=== PATIENT | female | born 1950 | race Caucasian/White ===

== ENCOUNTER 2017-04-10 13:20 | Emergency (ER) | payer OTHER ==
[~2017-04-10] VITALS: Ht 165.1 cm; Wt 81.7 kg
[2017-04-10 13:20] VITALS: BP 180/115
[~2017-04-10 13:20] MED LIST: NOHOMEMEDICATIONS; NORCO 5-325 TA1 EACH PO
[2017-04-10] MEDS ORDERED: NORCO 5-325 TA1 EACH PO (13:40)
== END 2017-04-10 14:21 | disposition home or self-care (01) ==
LOC: ER 13:20
DX: M25.562 Pain in left knee (principal); F17.210 Nicotine dependence, cigarettes, uncomplicated; Z88.0 Allergy status to penicillin

== ENCOUNTER 2021-04-04 09:33 | Inpatient (IN) | payer MEDICARE ==
[~2021-04-04] VITALS: Ht 165.1 cm; Wt 98.2 kg
[2021-04-04 09:45] VITALS: BP 109/88
[2021-04-04 10:15] LABS: ABSOLUTE NEUTROPHILS 14.9 thou/uL (1.4-8.2); BASOPHILS 0.5 % (0.0-2.0); EOSINOPHILS 0.3 % (0.0-3.0); HEMATOCRIT 42.8 % (37.0-47.0); HEMOGLOBIN 13.5 gm/dL (12.0-15.0); LYMPHOCYTES 7.1 % (24.0-44.0); MCH 27.1 pg (26.0-34.0); MCHC 31.6 g/dL (28.0-37.0); MCV 85.8 fL (80.0-100.0); MONOCYTES 7.9 % (1.0-8.0); PLATELET COUNT 390 thou/uL (150-400); POLYS 84.2 % (36.0-66.0); RBC 4.99 mil/uL (4.20-5.00); RDW 15.1 % (10.5-14.5); WBC 17.7 thou/uL (4.0-11.0)
[2021-04-04 10:19] LABS: ANION GAP 12 mmol/L (7-16); BUN 18 mg/dL (7-18); CALCIUM 9.4 mg/dL (8.5-10.1); CHLORIDE 106 mmol/L (98-107); CO2 24 mmol/L (21-32); GLUCOSE 170 mg/dL (74-106); POTASSIUM 3.8 mmol/L (3.5-5.1); SODIUM 142 mmol/L (136-145)
[2021-04-04 10:25] LABS: INR 1.08; PROTIME 11.7 Seconds (10.5-12.1)
[2021-04-04 10:59] VITALS: BP 123/90
--- NOTE | 2021-04-04 11:46 | 2DMMODE ---
[facility] [address] [place] [address] 2 D/M-MODE ECHOCARDIOGRAM Name: SEMAJ BARNES Room #: 150-6 ADM IN ..#: [id number] Admission: 04/04/21 Attend Phys: Abdiaziz Rubi Discharge: Date of : 52 Report #: [id number] THIS REPORT FOR: cc: FAM - Family physician unknown ROBIN - Family physician unknown Abdiaziz Rubi MD ~ APPROVED REPORT Study performed: 04/04/2021 10:20:43 EXAM: Comprehensive 2D, Doppler, and color-flow Echocardiogram Patient Location: ER Status: STAT BSA: 2.02 HR: 95 bpm BP: 135/89 mmHg Rhythm: NSR Other Information Study Quality: Good Indications STAT echo for STEMI. Pre-angiogram. 2D Dimensions IVSd: 13.21 (7-11mm) LVOT Diam: 20.26 (18-24mm) LVDd: 47.85 mm PWd: 13.21 (7-11mm) LVDs: 40.85 (25-40mm) Left Atrium: 41.52 (27-40mm) Volumes Left Atrial Volume (Systole) Single Plane 4CH: 49.67 mL Single Plane 2CH: 63.00 mL LA ESV Index: 29.00 mL/m2 Aortic Valve AoV Peak Al.: 1.56 m/s AO Peak Gr.: 9.67 mmHg LVOT Max P.24 mmHg LVOT Max V: 0.90 m/s JASON Vmax: 1.86 cm2 Mitral Valve [facility] [address] [place] [address] 2 D/M-MODE ECHOCARDIOGRAM Name: SEMAJ BARNES Room #: 150-6 ADM IN M.R.#: [id number] Admission: 04/04/21 Attend Phys: Abdiaziz Salas Discharge: Date of : 52 Report #: [id number] E/A Ratio: 1.4 MV Decel. Time: 175.32 ms MV E Max Al.: 1.58 m/s MV A Al.: 1.17 m/s MV PHT: 50.84 ms IVRT: 55.36 ms Pulmonary Valve PV Peak Al.: 1.23 m/s PV Peak Gr.: 6.05 mmHg Tricuspid Valve TR Peak Al.: 3.34 m/s RAP Estimate: 10.00 mmHg TR Peak Gr.: 45.00 mmHg PA Pressure: 55.00 mmHg Left Ventricle The left ventricle is normal size. Regional wall motion abnormalities are noted. Mild to moderate concentric left ventricular hypertrophy. Left ventricular systolic function is severely decreased. LVEF is 25%. Moderate diastolic dysfunction is present (pseudonormal filling). Right Ventricle The right ventricle is normal size. Right ventricle is mildly hypokinetic. Atria The left atrium size is normal. The right atrium size is normal. Aortic Valve Aortic valve is trileaflet; mildly thickened. No aortic regurgitation is present. There is no aortic valvular stenosis. Mitral Valve The mitral valve is normal in structure. Moderate mitral annular calcification. Moderate mitral regurgitation. No evidence of mitral valve stenosis. Tricuspid Valve The tricuspid valve is normal in structure. Mild tricuspid regurgitation. Moderate pulmonary hypertension. Estimated PAP is 55mmHg. Pulmonic Valve The pulmonary valve is normal in structure. Mild pulmonic [facility] [address] [place] [address] 2 D/M-MODE ECHOCARDIOGRAM Name: SEMAJ BARNES Room #: 150-6 ADM IN M.R.#: [id number] Admission: 04/04/21 Attend Phys: Abdiaziz Salas Discharge: Date of : 52 Report #: [id number] regurgitation. Great Vessels The aortic root is normal in size. IVC is normal in size and collapses >50% with inspiration. Pericardium There is no pericardial effusion. <Conclusion> The left ventricle is normal size. Mild to moderate concentric left ventricular hypertrophy. Regional wall motion abnormalities are noted. LVEF is 25%. The left atrium size is normal. Aortic valve is trileaflet; mildly thickened. The mitral valve is normal in structure. Moderate mitral annular calcification. Moderate mitral regurgitation. The tricuspid valve is normal in structure. Mild tricuspid regurgitation. Moderate pulmonary hypertension. Estimated PAP is 55mmHg. The pulmonary valve is normal in structure. Mild pulmonic regurgitation. The aortic root is normal in size. There is no pericardial effusion. <ELECTRONICALLY SIGNED> By: Abdiaziz Rubi MD 04/04/21 1146 1146 1146 Abdiaziz Rubi MD /INF
[2021-04-04 13:06] LABS: CHOLESTEROL 166 mg/dL (<200); HDL CHOLESTEROL 42 mg/dL (>40); LDL CHOLESTEROL 97 mg/dL (<100); TRIGLYCERIDE 136 mg/dL (<150); VLDL 27 mg/dL (<40)
[2021-04-04 13:52] VITALS: BP 134/87
[2021-04-04 15:11] VITALS: BP 147/88
--- NOTE | 2021-04-04 15:35 | NUR ---
RECEIVED PT FROM THE FIELD AGENT. PT CAME IN TO ER WITH STEMI AND WENT TO FIELD AGENT. 2 STENTS TO MID LAD. ADMISSION COMPLETED. PT IS CURRENTLY ON 2L VIA NC; NO HX OF HOME O2. BEDREST COMPELTED. PT HAS SOME AGITATION AND IS CURRENTLY SITTING ON SIDE OF BED. INCREASED O2 TO 3L FOR COMFORT. R GROIN SITE MYNX CLOSURE C/D/I NO HEMATOMA. WILL CONTINUE TO MONITOR SITE. HX SMOKING. LOW FALL PRECAUTIONS IN PLACE.
[2021-04-04 19:30] VITALS: BP 124/84
[2021-04-05] VITALS (8 sets, daily range): BP systolic 94–138; BP diastolic 50–82
[2021-04-05 02:54] LABS: ALBUMIN 2.8 g/dL (3.4-5.0); ANION GAP 12 mmol/L (7-16); BUN 16 mg/dL (7-18); CALCIUM 8.8 mg/dL (8.5-10.1); CHLORIDE 106 mmol/L (98-107); CHOLESTEROL 113 mg/dL (<200); CO2 22 mmol/L (21-32); GLUCOSE 128 mg/dL (74-106); HDL CHOLESTEROL 39 mg/dL (>40); LDL CHOLESTEROL 56 mg/dL (<100); POTASSIUM 3.7 mmol/L (3.5-5.1); SGOT 269 U/L (15-37); SGPT 104 U/L (30-65); SODIUM 140 mmol/L (136-145); TC:HDL 2.9 Ratio (Not establshd); TOTAL BILIRUBIN 1.1 mg/dL (0.2-1.0); TOTAL PROTEIN 6.4 g/dL (6.4-8.2); TRIGLYCERIDE 90 mg/dL (<150); VLDL 18 mg/dL (<40)
[2021-04-05 03:03] LABS: SERUM ASSESSMENT Clear
[2021-04-05 03:25] LABS: HEMATOCRIT 38.8 % (37.0-47.0); HEMOGLOBIN 12.4 gm/dL (12.0-15.0); MCH 27.4 pg (26.0-34.0); MCV 85.7 fL (80.0-100.0); RBC 4.53 mil/uL (4.20-5.00); WBC 17.4 thou/uL (4.0-11.0)
--- NOTE | 2021-04-05 05:55 | NUR ---
Pt. slept some. Denies any chest pain. O2 at 2L/NC with O2 sat in the mid to upper 90's. She does get tachypneic and tachycardic with activities but recovers after resting. Up ad jet in room with steady gait. Right groin with dressing CDI , no hematoma or bleeding. Making progress towards care plan goals.
--- NOTE | 2021-04-05 08:32 | EKG ---
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 : 1950 Requested By: Gabe Barber Order Number: [id number] MD: Andrea Meehan Measurements Intervals [place] Rate: 103 P: 77 ND: 115 QRS: 25 QRSD: 101 T: 105 QT: 439 QTc: 575 Interpretive Statements Sinus tachycardia Anterior infarct, acute (LAD) Prolonged QT interval No previous ECG available for comparison Electronically Signed On 04-05-2021 8:32:44 [employer] INSPECTOR by Andrea Meehan [email or web address] <ELECTRONICALLY SIGNED> By: Andrea Meehan MD, [facility] 04/05/2132 0945 Andrea Meehan MD, FACC /EPI
[2021-04-05] MEDS ORDERED: BRILINTA90 MG PO (15:44)
[2021-04-05] MEDS ORDERED: LISINOPRIL2.5 MG PO (15:44)
[2021-04-05] MEDS ORDERED: COREG6.25 MG PO (15:44)
[2021-04-05] MEDS ORDERED: BAYER CHEWABLE81 MG PO (15:44)
[2021-04-05 15:57] LABS: % SATURATION 9 % (20-39); IRON 27 ug/dL (50-170); TIBC 299 ug/dL (250-450)
[2021-04-06 04:03] VITALS: BP 97/45
[2021-04-06 07:08] VITALS: BP 101/55
[2021-04-06 09:07] LABS: HEMATOCRIT 37.2 % (37.0-47.0); HEMOGLOBIN 11.7 gm/dL (12.0-15.0); MCH 27.3 pg (26.0-34.0); MCHC 31.5 g/dL (28.0-37.0); MCV 86.7 fL (80.0-100.0); RBC 4.29 mil/uL (4.20-5.00); RDW 15.1 % (10.5-14.5); WBC 15.3 thou/uL (4.0-11.0)
[2021-04-06 10:23] LABS: ALBUMIN 3.1 g/dL (3.4-5.0); CREATININE 1.4 mg/dL (0.6-1.0); POTASSIUM 3.1 mmol/L (3.5-5.1); TOTAL BILIRUBIN 1.1 mg/dL (0.2-1.0); TOTAL PROTEIN 7.4 g/dL (6.4-8.2)
[2021-04-06 11:09] VITALS: BP 87/50; BP 89/55
[2021-04-06 13:19] VITALS: BP 87/50
--- NOTE | 2021-04-06 14:54 | NUR ---
PATIENT DISCHARGED HOME, EDUCATION DONE AT BEDSIDE WITH PATIENT NO QUESTIONS OR CONCERNS AT TIME OF DC. TAKEN DOWN TO OUTPATIENT PHARMACY TO WAIT FOR MEDICATIONS. IV AND TELE REMOVED. FAMILY AT BEDSIDED WITH PATIENT
[2021-04-07 04:06] LABS: HAV IgM AB (ANTI-HAV IgM) Negative (Negative); HEPATITIS B SURFACE AG Negative (Negative); HEPATITIS C VIRUS AB <0.1 (0.0-0.9)
== END 2021-04-06 14:58 | disposition home or self-care (01) | DRG 246 ==
LOC: ER 09:33 → TBA 10:59 → 2N 10:59
PROVIDERS: Internal Medicine Gastroenterology; Nurse Practitioner; Student in an Organized Health Care Education/Training Program; ADMIT Internal Medicine; ATTEND Internal Medicine
PROC: 4A023N7 Measurement of Cardiac Sampling and Pressure, Left Heart, Percutaneous Approach (ICD-10-PCS; principal; 2021-04-04)
PROC: B2111ZZ Fluoroscopy of Multiple Coronary Arteries using Low Osmolar Contrast (ICD-10-PCS; principal; 2021-04-04)
PROC: 027035Z Dilation of Coronary Artery, One Artery with Two Drug-eluting Intraluminal Devices, Percutaneous Approach (ICD-10-PCS; principal; 2021-04-04)
DX: I21.3 ST elevation (STEMI) myocardial infarction of unspecified site (principal); I50.21 Acute systolic (congestive) heart failure; I25.5 Ischemic cardiomyopathy; Z20.822 Contact with and (suspected) exposure to COVID-19; F17.210 Nicotine dependence, cigarettes, uncomplicated; E78.5 Hyperlipidemia, unspecified; Z79.82 Long term (current) use of aspirin; Z88.0 Allergy status to penicillin; Z79.899 Other long term (current) drug therapy; Z71.6 Tobacco abuse counseling
CPT/HCPCS: 10081

== ENCOUNTER → 2021-04-13 | Outpatient (CLI) | payer MEDICARE ==
[~2021-04-13] MED LIST changes: +BAYER CHEWABLE81 MG PO; +BRILINTA90 MG PO; +COREG6.25 MG PO; +LISINOPRIL2.5 MG PO
== END ==
LOC: SJCVC 09:58
PROVIDERS: ATTEND Internal Medicine
DX: R94.31 Abnormal electrocardiogram [ECG] [EKG] (principal); I25.10 Atherosclerotic heart disease of native coronary artery without angina pectoris; I25.5 Ischemic cardiomyopathy; E78.00 Pure hypercholesterolemia, unspecified; I50.23 Acute on chronic systolic (congestive) heart failure; R06.00 Dyspnea, unspecified; R79.89 Other specified abnormal findings of blood chemistry; J44.9 Chronic obstructive pulmonary disease, unspecified; Z72.0 Tobacco use; Z79.82 Long term (current) use of aspirin; Z79.899 Other long term (current) drug therapy; Z88.0 Allergy status to penicillin; Z98.890 Other specified postprocedural states